=== PATIENT | male | born 1995 | race Caucasian/White ===

== ENCOUNTER 2017-06-08 17:47 | Emergency (ER) | payer OTHER ==
[~2017-06-08] VITALS: Ht 180.3 cm; Wt 60.0 kg
[2017-06-08 17:48] VITALS: BP 145/91; PULSE 71; RESP 15; TEMP 98.4; O2SAT 97
[2017-06-08] MEDS ORDERED: IBUPROFEN 800 MG TAB PO ONE (18:30)
[2017-06-08] MEDS ORDERED: METHOCARBAMOL 500 MG TAB PO ONE (18:30)
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
[2017-06-08] MEDS ORDERED: CYCL1TAB29 PO (19:10)
[2017-06-08] MEDS ORDERED: DICL75TA PO (19:10)
== END 2017-06-08 19:31 | disposition home or self-care (01) ==
LOC: NEPK 17:47
DX: S16.1XXA Strain of muscle, fascia and tendon at neck level, initial encounter (principal); V49.9XXA Car occupant (driver) (passenger) injured in unspecified traffic accident, initial encounter; Y92.410 Unspecified street and highway as the place of occurrence of the external cause
CPT/HCPCS: 72125; 99284